=== PATIENT | female | born 2000 | race Caucasian/White ===

== ENCOUNTER 2023-11-14 07:30 | Inpatient (IN) | payer OTHER ==
[~2023-11-14] VITALS: Ht 160 cm; Wt 102.0 kg
[2023-11-14] VITALS (16 sets, daily range): BP systolic 114–141; BP diastolic 61–87; O2SAT 97
[2023-11-14] MEDS ORDERED: PRENTAB9 PO (07:44)
[2023-11-14] MEDS ORDERED: HOME MED LIST COMPLETE! XX SCH (07:45)
[2023-11-14] MEDS ORDERED: CARBOPROST TROMETHAMINE 250 MCG/ML AMP IM PRN (08:20)
[2023-11-14] MEDS ORDERED: LIDOCAINE 1% MDV 20ML VIAL INFIL PRN (08:20)
[2023-11-14] MEDS: LR 1,000 ML IV SCH (08:20)
[2023-11-14] MEDS ORDERED: TRANEXAMIC ACID INJection 1,000 MG in NS 100 ML IV PRN (08:20)
[2023-11-14] MEDS ORDERED: METHYLERGONOVINE MALEATE 0.2MG/ML 1ML VIAL IM PRN (08:20)
[2023-11-14] MEDS ORDERED: OXYTOCIN DRIP 30 UNITS in IV 1 EA IV PRN (08:20)
[2023-11-14 08:49] LABS: HEMATOCRIT 37.1 % (36.0-47.0); HEMOGLOBIN 12.3 g/dl (12.0-15.5); MEAN CORPUSCULAR HEMOGLOBIN 29.4 pg (27.0-33.0); MEAN CORPUSCULAR HGB CONC 33.2 g/dl (32.0-36.5); MEAN CORPUSCULAR VOLUME 88.5 fl (80.0-96.0); PLATELET COUNT, AUTOMATED 221 10^3/uL (150-450); RED BLOOD COUNT 4.19 10^6/uL (4.00-5.40)
[2023-11-14] MEDS: miSOPROStol 50MCG 1/2 TABLET BUC PRN (08:49)
[2023-11-15] VITALS (48 sets, daily range): BP systolic 109–160; BP diastolic 58–91
[2023-11-15] MEDS: OXYTOCIN DRIP 30 UNITS in IV 1 EA IV SCH ×2 (09:03→16:56)
[2023-11-15] MEDS: LACTATED RINGER'S 1000 ML IV STA (09:52)
[2023-11-15] MEDS ORDERED: LR 500 ML IV PRN (09:55)
[2023-11-15] MEDS ORDERED: EPIDURAL/PCA KEYS XX PRN (09:55)
[2023-11-15] MEDS ORDERED: NALOXONE INJ 0.4MG/1ML VIAL IV PRN (09:55)
[2023-11-15] MEDS ORDERED: ONDANSETRON 4MG 2ML VIAL IV PRN ×2 (09:55→16:40)
[2023-11-15] MEDS ORDERED: ePHEDrine SULFATE 25 MG/5 ML(5MG/ML) SYRINGE IVP PRN (09:55)
[2023-11-15] MEDS ORDERED: diphenhydrAMINE 50MG/ML VIAL IV PRN (09:55)
[2023-11-15] MEDS: FENTANYL/ROPIVACAINE/NACL BAG 100 ML EPIDURAL SCH (10:24)
[2023-11-15 16:36] LABS: CORD GAS ABE A -12.4; CORD GAS ABE V -5.7; CORD GAS HCO3 V 20.3 MMOL/L; CORD GAS O2 SAT A 18.2 %; CORD GAS PCO2 A 77.7 mmHg; CORD GAS PCO2 V 41.7 mmHg; CORD GAS PH A 7.029 UNITS; CORD GAS PH V 7.306 UNITS; CORD GAS PO2 A 14.8 mmHg; CORD GAS PO2 V 32.9 mmHg; CORD GAS SBC A 13.4 MMOL/L; CORD GAS SBC V 19.3 MMOL/L; CORD GAS TCO2 A 22.4 MMOL/L; CORD GAS TCO2 V 21.6 MMOL/L
[2023-11-15] MEDS ORDERED: IBUPROFEN 800 MG TAB PO PRN (16:40)
[2023-11-15] MEDS ORDERED: METHYLERGONOVINE MALEATE 0.2 MG TAB PO PRN (16:40)
[2023-11-15] MEDS ORDERED: ACETAMINOPHEN TAB 650MG DOSE (2X325MG) PO PRN (16:40)
[2023-11-15] MEDS ORDERED: IBUPROFEN 600MG TAB PO PRN (16:40)
[2023-11-15] MEDS ORDERED: DIBUCAINE 1% OINTMENT 30GM TOP PRN (16:40)
[2023-11-15] MEDS ORDERED: ACETAMINOPHEN 500 MG TAB PO PRN (16:40)
[2023-11-15] MEDS ORDERED: DOCUSATE SODIUM 100MG CAPSULE PO PRN (16:40)
[2023-11-16 06:00] VITALS: BP 121/80
[2023-11-16] MEDS: PRENATAL VITAMINS CHEWABLE TABLET PO SCH (08:53)
[2023-11-16 18:00] VITALS: BP 125/89; O2SAT 100
[2023-11-17 06:00] VITALS: BP 128/87; O2SAT 98
== END 2023-11-17 15:26 | disposition home or self-care (01) | DRG 807 ==
LOC: EDBD 07:30 → M LDI 07:30 → M OBS 11-15 19:59
PROVIDERS: ADMIT Advanced Practice Midwife; ATTEND Advanced Practice Midwife
PROC: 3E0P7GC Introduction of Other Therapeutic Substance into Female Reproductive, Via Natural or Artificial Opening (ICD-10-PCS; 2023-11-14)
PROC: 10E0XZZ Delivery of Products of Conception, External Approach (ICD-10-PCS; principal; 2023-11-15)
PROC: 0KQM0ZZ Repair Perineum Muscle, Open Approach (ICD-10-PCS; 2023-11-15)
PROC: 0HQ9XZZ Repair Perineum Skin, External Approach (ICD-10-PCS; 2023-11-15)
DX: O48.0 Post-term pregnancy (principal); Z37.0 Single live birth; Z3A.41 41 weeks gestation of pregnancy; O69.81X0 Labor and delivery complicated by cord around neck, without compression, not applicable or unspecified; O70.1 Second degree perineal laceration during delivery; O70.0 First degree perineal laceration during delivery